=== PATIENT | male | born 1960 | race Caucasian/White ===

== ENCOUNTER → 2018-06-27 09:13 | Outpatient (CLI) | payer OTHER, SELFPAY ==
[2018-06-27 08:38] VITALS: BMI 30.9
--- NOTE | 2018-06-27 09:16 | RAD_ITS ---
STUDY: X-RAY - RIGHT FOOT CLINICAL: Male, 58 years old. Patient broke her foot on June 03. Previous images were not obtained here and are not available for direct comparison. TECHNIQUE: 3 view(s) of the foot. COMPARISON: None. FINDINGS: Normal talus, calcaneus, and tarsal bones. Normal visualized subtalar, talonavicular, calcaneocuboid, tarsal and tarsometatarsal articulations. There is an oblique fracture of the mid second metatarsal shaft with 4 mm lateral displacement, 4 mm superior displacement, and less than 2 mm shortening. No significant angulation is demonstrated. There is faint callus formation surrounding the fracture site, with no demonstrated bridging callus. Normal metatarsophalangeal joint of the great toe. Normal tibial and fibular sesamoid bones. Normal interphalangeal joint of the great toe. Normal phalanges of the great toe. Normal second through fifth metatarsophalangeal joints. Normal interphalangeal joints and phalanges of the lesser toes. There is soft tissue swelling. RAD/Foot min 3 Views IMPRESSION: Mildly displaced second metatarsal shaft fracture, as above. Early callus formation is visualized. Electronically Signed: Woodrow Escalante MD at 8:01 EST , Service support ,
== END ==
PROVIDERS: Family Provider Nurse Practitioner Family; PCP Nurse Practitioner Family; Referring Provider Nurse Practitioner Family; Visit Provider Nurse Practitioner Family
DX: S92.901A Unspecified fracture of right foot, initial encounter for closed fracture (principal); S92.501A Displaced unspecified fracture of right lesser toe(s), initial encounter for closed fracture
CPT/HCPCS: 73630

== ENCOUNTER → 2018-07-06 08:38 | Outpatient (CLI) | payer OTHER, SELFPAY ==
[2018-06-27 08:38] VITALS: BMI 30.9
[2018-07-06 13:03] LABS: Anion Gap 7 (5-15); BUN 19 mg/dL (7-18); BUN/Creat Ratio 17.9 RATIO (10-20); Calcium,Total 8.8 mg/dL (8.5-10.1); Chloride 106 mmol/L (98-107); Creatinine, Serum 1.06 mg/dL (0.70-1.30); EST Glomerular Filtration Rate 77 mL/min (>60); Est Glom Filt Rate - Afr Amer 93 mL/min (>60); Glucose 110 mg/dL (74-106); Potassium 4.4 mmol/L (3.5-5.1); Sodium Level 141 mmol/L (136-145)
== END ==
PROVIDERS: Family Provider Nurse Practitioner Family; PCP Nurse Practitioner Family; Visit Provider Nurse Practitioner Family
DX: I10 Essential (primary) hypertension (principal)
CPT/HCPCS: 36415; 80048

== ENCOUNTER → 2018-08-07 | Outpatient (CLI) | payer OTHER, SELFPAY ==
[2018-08-07 08:37] VITALS: BMI 30.9
--- NOTE | 2018-08-07 09:21 | RAD_ITS ---
STUDY: X-RAY - RIGHT FOOT CLINICAL: Male, 58 years old. Fracture follow-up. TECHNIQUE: 3 view(s) of the foot. COMPARISON: Right foot, June 27, 2018. FINDINGS: Normal talus and tarsal bones. There is minimal spurring at the insertion of the plantar aponeurosis upon otherwise normal calcaneus. Normal visualized subtalar, talonavicular, calcaneocuboid, tarsal and tarsometatarsal articulations. There is a mildly displaced fracture of the midshaft of the second metatarsal with extensive periosteal reaction and callus formation. There is no change in alignment when compared to the prior study. The remainder of the metatarsals are unremarkable. Normal metatarsophalangeal joint of the great toe. Normal tibial and fibular sesamoid bones. Normal interphalangeal joint of the great toe. Normal phalanges of the great toe. Normal second through fifth metatarsophalangeal joints. Normal interphalangeal joints and phalanges of the lesser toes. The soft tissue structures are unremarkable. RAD/Foot min 3 Views IMPRESSION: Healed/healing fracture of the second metatarsal without change in alignment. Electronically Signed: Jeremy Ndiaye DO at 17:03 EDT Tel [phone], Service support ,
== END | disposition home or self-care (01) ==
LOC: MTRAD 09:19
PROVIDERS: Family Provider Internal Medicine; PCP Internal Medicine; Referring Provider Podiatrist; Visit Provider Podiatrist
DX: S92.301D Fracture of unspecified metatarsal bone(s), right foot, subsequent encounter for fracture with routine healing (principal)
CPT/HCPCS: 73630

== ENCOUNTER → 2018-08-17 | Outpatient (CLI) | payer OTHER, SELFPAY ==
[2018-08-07 08:37] VITALS: BMI 30.9
[2018-08-17 12:54] LABS: Absolute Lymphocyte Count 1.41 X10^3/ul (0.83-4.51); Absolute Neutrophil Count 1.5 X10^3/uL (2.0-7.7); Basophil# 0.02 X10^3/uL; Basophil% 0.6 % (0-1); Eosinophil# 0.24 X10^3/uL; Eosinophils% 6.6 % (0-5); Hematocrit 45.2 % (40-54); Hemoglobin 15.3 g/dl (13.0-16.5); Lymphocyte # 1.41 X10^3/ul (4.0); Lymphocyte % 38.8 % (19-41); Mean Corp Hgb Conc 33.8 g/gl (32-36); Mean Corpuscular Hgb 28.7 pg (27.0-32.0); Mean Corpuscular Volume 84.8 fL (80-94); Monocyte# 0.43 X10^3/uL; Monocyte% 11.8 % (0-10); Neutrophil # 1.52 X10^3/uL (2.7-7.7); Neutrophil % 41.9 % (47-70); Platelet Count 192 K/mm3 (150-450); RBC Distribution Width CV 12.8 % (11.6-14.6); RBC Distribution Width SD 39.2 fl (35.1-43.9); Red Blood Count 5.33 M/mm3 (4.6-6.2); White Blood Count 3.6 K/mm3 (4.4-11.0)
[2018-08-17 12:56] LABS: POSITIVE COUNT NO; POSITIVE DIFFERENTIAL NO; POSITIVE MORPHOLOGY NO
[2018-08-17 13:18] LABS: ALB/GLOB Ratio 1.3 RATIO (0.9-2.4); AST(SGOT) 27 U/L (15-37); Alanine Aminotransfer ALT/SGPT 52 U/L (16-61); Albumin, Serum 3.9 g/dL (3.2-5.0); Alkaline Phosphatase 68 U/L (45-117); Anion Gap 8 (5-15); BUN 21 mg/dL (7-18); BUN/Creat Ratio 19.6 RATIO (10-20); Calcium,Total 8.6 mg/dL (8.5-10.1); Chloride 109 mmol/L (98-107); Cholesterol 218 mg/dL (200); Creatinine, Serum 1.07 mg/dL (0.70-1.30); EST Glomerular Filtration Rate 76 mL/min (>60); Est Glom Filt Rate - Afr Amer 92 mL/min (>60); Globulin 2.9 g/dL (2.2-4.2); Glucose 98 mg/dL (74-106); High Density Lipoprotein 53 mg/dL; Potassium 4.2 mmol/L (3.5-5.1); Protein, Total 6.8 g/dL (6.4-8.2); Sodium Level 142 mmol/L (136-145); Triglycerides 141 mg/dL; Very Low Density Lipoprotein 28 mg/dL (5-40)
== END | disposition home or self-care (01) ==
LOC: BIMLAB 09:22
PROVIDERS: Family Provider Internal Medicine; PCP Internal Medicine; Visit Provider Internal Medicine
DX: I10 Essential (primary) hypertension (principal)
CPT/HCPCS: 36415; 80053; 80061; 85025

== ENCOUNTER → 2019-08-07 | Outpatient (CLI) | payer BC, SELFPAY ==
[2019-08-07 08:55] VITALS: BMI 32.4
[2019-08-07 12:49] LABS: Absolute Lymphocyte Count 1.34 X10^3/uL (0.83-4.51); Absolute Neutrophil Count 2.3 X10^3/uL (2.0-7.7); Basophil# 0.03 X10^3/uL; Basophil% 0.7 % (0-1); Eosinophil# 0.39 X10^3/uL; Eosinophils% 8.6 % (0-5); Hemoglobin 15.8 g/dL (13.0-16.5); Lymphocyte # 1.34 X10^3/ul (4.0); Lymphocyte % 29.5 % (19-41); Mean Corp Hgb Conc 33.6 g/dL (32-36); Mean Corpuscular Hgb 29.6 pg (27.0-32.0); Mean Corpuscular Volume 88.2 fL (80-94); Mean Platelet Vol. 10.5 fl (6.2-12.0); Monocyte# 0.44 X10^3/uL; Monocyte% 9.7 % (0-10); NRBC Flagged by Analyzer 0 % (0-5); Neutrophil # 2.33 X10^3/uL (2.7-7.7); Neutrophil % 51.1 % (47-70); Platelet Count 211 K/mm3 (150-450); RBC Distribution Width CV 12.7 % (11.6-14.6); RBC Distribution Width SD 40.6 fl (35.1-43.9); Red Blood Count 5.33 M/mm3 (4.6-6.2); White Blood Count 4.6 K/mm3 (4.4-11.0)
[2019-08-07 13:14] LABS: ALB/GLOB Ratio 1.3 RATIO (0.9-2.4); AST(SGOT) 30 U/L (15-37); Alanine Aminotransfer ALT/SGPT 67 U/L (16-61); Albumin, Serum 4.2 g/dL (3.2-5.0); Alkaline Phosphatase 64 U/L (45-117); Anion Gap 4 (5-15); BUN 20 mg/dL (7-18); BUN/Creat Ratio 21.4 RATIO (10-20); Calcium,Total 8.8 mg/dL (8.5-10.1); Chloride 104 mmol/L (98-107); Cholesterol 229 mg/dL (200); Creatinine, Serum 0.93 mg/dL (0.70-1.30); EST Glomerular Filtration Rate 89 mL/min (>60); Est Glom Filt Rate - Afr Amer 107 mL/min (>60); Globulin 3.2 g/dL (2.2-4.2); Glucose 84 mg/dL (74-106); High Density Lipoprotein 59 mg/dL; PSA,Total - Annual Screen 2.75 ng/mL (0.00-4.00); Potassium 3.9 mmol/L (3.5-5.1); Protein, Total 7.4 g/dL (6.4-8.2); Sodium Level 140 mmol/L (136-145); Thyroid Stim Hormone (TSH) 1.46 uIU/mL (0.358-3.74); Triglycerides 221 mg/dL; Very Low Density Lipoprotein 44 mg/dL (5-40)
[2019-08-07 13:55] LABS: Bacteria 0 SEEN /hpf (None Seen); Mucous, Urine 0 SEEN /hpf (<or=2+); Red Blood Cells-Urine 0 SEEN /hpf (0-5); White Blood Cells 0 SEEN /hpf (0-5)
[2019-08-07 14:00] LABS: Color, Urine Yellow (Yellow); Glucose, Dipstick Normal (Normal); Ketone-Dipstick Negative (Negative); Leukocyte Esterase-Dipstick Negative /ul (Negative); Nitrite-Dipstick Negative (Negative); Occult Blood-Urine Negative /ul (Negative); Protein-Dipstick Negative (Negative); Urine Bilirubin Dipstick Negative (Negative); Urine Clarity Clear (Clear); Urine Urobilinogen Normal (Normal); Urine pH 6.5 (5.0 - 8.0)
[2019-08-07 14:06] LABS: Squamous Epithelial Cells - UA 0-5 SEEN /hpf (0-5)
== END | disposition home or self-care (01) ==
LOC: LAB 12:20 → LABSPEC 12:25
PROVIDERS: Referring Provider Nurse Practitioner Family; Visit Provider Nurse Practitioner Family
DX: Z00.00 Encounter for general adult medical examination without abnormal findings (principal); I10 Essential (primary) hypertension; E66.9 Obesity, unspecified
CPT/HCPCS: 80053; 80061; 81001; 84153; 84443; 85025; G0103

== ENCOUNTER → 2020-02-12 | Outpatient (CLI) | payer BC, SELFPAY ==
[2020-02-12 08:48] VITALS: BMI 33.2
[2020-02-12 13:43] LABS: Cholesterol 234 mg/dL (200); High Density Lipoprotein 62 mg/dL; Triglycerides 127 mg/dL; Very Low Density Lipoprotein 25 mg/dL (5-40)
== END | disposition home or self-care (01) ==
LOC: BIMLAB 09:22
PROVIDERS: PCP Internal Medicine; Referring Provider Nurse Practitioner Family; Visit Provider Nurse Practitioner Family
DX: E78.5 Hyperlipidemia, unspecified (principal)
CPT/HCPCS: 36415; 80061

== ENCOUNTER → 2020-03-10 09:40 | Outpatient (CLI) | payer BC, SELFPAY ==
[2020-02-12 08:48] VITALS: BMI 33.2
== END ==
PROVIDERS: PCP Internal Medicine; Referring Provider Internal Medicine; Visit Provider Internal Medicine
DX: Z03.818 Encounter for observation for suspected exposure to other biological agents ruled out (principal); J02.9 Acute pharyngitis, unspecified
CPT/HCPCS: 87635; C9803; U0003

== ENCOUNTER → 2020-08-12 08:53 | Outpatient (CLI) | payer BC, SELFPAY ==
[2020-08-12 08:06] VITALS: BMI 32.1
[2020-08-12 08:55] LABS: Bacteria 0 SEEN /hpf (None Seen); Mucous, Urine 0 SEEN /hpf (<or=2+); Red Blood Cells-Urine 0 SEEN /hpf (0-5); White Blood Cells 0 SEEN /hpf (0-5)
[2020-08-12 12:12] LABS: Absolute Lymphocyte Count 1.38 X10^3/uL (0.83-4.51); Absolute Neutrophil Count 2.3 X10^3/uL (2.0-7.7); Basophil# 0.03 X10^3/uL; Basophil% 0.7 % (0-1); Eosinophil# 0.33 X10^3/uL; Eosinophils% 7.4 % (0-5); Hemoglobin 15.8 g/dL (13.0-16.5); Lymphocyte # 1.38 X10^3/ul (0.83-4.51); Mean Corp Hgb Conc 32.9 g/dL (32-36); Mean Corpuscular Hgb 28.9 pg (27.0-32.0); Mean Corpuscular Volume 87.9 fL (80-94); Mean Platelet Vol. 10.1 fl (6.2-12.0); Monocyte# 0.43 X10^3/uL; Monocyte% 9.7 % (0-10); NRBC Flagged by Analyzer 0 % (0-5); Neutrophil # 2.27 X10^3/uL (2.7-7.7); Platelet Count 213 K/mm3 (150-450); RBC Distribution Width CV 12.5 % (11.6-14.6); RBC Distribution Width SD 40.2 fl (35.1-43.9); Red Blood Count 5.46 M/mm3 (4.6-6.2); White Blood Count 4.5 K/mm3 (4.4-11.0)
[2020-08-12 12:14] LABS: Color, Urine Yellow (Yellow); Glucose, Dipstick Normal (Normal); Ketone-Dipstick 5 mg/dl (Negative); Leukocyte Esterase-Dipstick Negative /ul (Negative); Nitrite-Dipstick Negative (Negative); Occult Blood-Urine Negative /ul (Negative); Protein-Dipstick Negative (Negative); Urine Bilirubin Dipstick Negative (Negative); Urine Clarity Clear (Clear); Urine Urobilinogen Normal (Normal)
[2020-08-12 12:32] LABS: Squamous Epithelial Cells - UA 0-5 SEEN /hpf (0-5)
[2020-08-12 12:34] LABS: ALB/GLOB Ratio 1.4 RATIO (0.9-2.4); AST(SGOT) 34 U/L (15-37); Alanine Aminotransfer ALT/SGPT 54 U/L (16-61); Albumin, Serum 4.2 g/dL (3.2-5.0); Alkaline Phosphatase 62 U/L (45-117); Anion Gap 4 (5-15); BUN 22 mg/dL (7-18); BUN/Creat Ratio 22.6 RATIO (10-20); Calcium,Total 9.4 mg/dL (8.5-10.1); Chloride 104 mmol/L (98-107); Cholesterol 218 mg/dL (200); Creatinine, Serum 0.98 mg/dL (0.70-1.30); EST Glomerular Filtration Rate 84 mL/min (>60); Est Glom Filt Rate - Afr Amer 101 mL/min (>60); Globulin 3.1 g/dL (2.2-4.2); Glucose 101 mg/dL (74-106); High Density Lipoprotein 59 mg/dL; Protein, Total 7.3 g/dL (6.4-8.2); Sodium Level 138 mmol/L (136-145); Thyroid Stim Hormone (TSH) 1.48 uIU/mL (0.358-3.74); Triglycerides 154 mg/dL; Very Low Density Lipoprotein 31 mg/dL (5-40)
== END ==
PROVIDERS: PCP Internal Medicine; Referring Provider Physician Assistant; Visit Provider Physician Assistant
DX: I10 Essential (primary) hypertension (principal); E66.9 Obesity, unspecified; Z12.5 Encounter for screening for malignant neoplasm of prostate
CPT/HCPCS: 36415; 80053; 80061; 81001; 84153; 84443; 85025; G0103

== ENCOUNTER 2021-05-04 11:14 | Outpatient (CLI) | payer BC, SELFPAY ==
[2021-05-04 12:44] LABS: Anion Gap 4 (5-15); BUN 22 mg/dL (7-18); BUN/Creat Ratio 23.3 RATIO (10-20); Calcium,Total 9.5 mg/dL (8.5-10.1); Chloride 104 mmol/L (98-107); Creatinine, Serum 0.94 mg/dL (0.70-1.30); EST Glomerular Filtration Rate 87 mL/min (>60); Est Glom Filt Rate - Afr Amer 105 mL/min (>60); Glucose 98 mg/dL (74-106); Potassium 3.8 mmol/L (3.5-5.1); Sodium Level 139 mmol/L (136-145)
== END 2021-05-04 23:59 | disposition short-term general hospital (02) ==
LOC: BIMLAB 11:15
PROVIDERS: Nurse Practitioner Family; PCP Internal Medicine; Visit Provider Internal Medicine
DX: I10 Essential (primary) hypertension (principal)
CPT/HCPCS: 36415; 80048

== ENCOUNTER 2021-06-30 07:40 | Outpatient (CLI) | payer BC, SELFPAY ==
--- NOTE | 2021-06-30 07:47 | CT_ITS ---
STUDY: CT RIGHT LOWER EXTREMITY WITHOUT CONTRAST REASON FOR EXAM: Right knee osteoarthritis, surgical planning. TECHNIQUE: Transaxial CT imaging of the lower extremity was performed. Coronal and sagittal images were reformatted. Individualized dose optimization techniques were used for this CT. COMPARISON: None. FINDINGS: Knee: There are marginal osteophytes, subchondral eburnation and severe joint space narrowing of the medial femorotibial compartment (coronal reconstruction 29). There are marginal osteophytes and subchondral eburnation and joint space narrowing of the mesial aspect of the lateral femorotibial compartment (coronal reconstruction 34). There are marginal osteophytes and joint space narrowing of the patellofemoral compartment (axial image 221). There is a small joint effusion. There is a small intra-articular body in a small popliteal cyst (sagittal reconstruction 42). There is chondrocalcinosis in the menisci (coronal reconstruction 27). Hip: There is mild chondrocalcinosis in the labrum (coronal reconstruction 59). There is joint space of the right hip is well-maintained. Ankle: Normal tibiotalar and posterior subtalar articulations. There is a small cyst in the medial body of the talus (coronal reconstruction 17). There is a bone island in the distal tibia. CT/Extremity Lower without Contra IMPRESSION: Right knee osteoarthritis. Electronically Signed: Norberto Mcqueen MD at 14:45 EST ,
--- NOTE | 2021-06-30 08:16 | EKG12_ITS ---
Test Reason : PREOP Blood Pressure : / mmHG Vent. Rate : 060 BPM Atrial Rate : 060 BPM P-R Int : 166 ms QRS Dur : 172 ms QT Int : 462 ms P-R-T Axes : 037 -55 029 degrees QTc Int : 462 ms Normal sinus rhythm Right bundle branch block Left anterior fascicular block Bifascicular block Abnormal ECG Confirmed by DANYELL LIRIANO, ANDRES ([id number]), video tape editor SHANNON RITCHIE ([id number]) on 06/30/2021 1:35:11 PM Referred By: Seamus Crews Confirmed By:ANDRES CHILD MD
== END 2021-06-30 23:59 | disposition home or self-care (01) ==
PROVIDERS: PCP Internal Medicine; Referring Provider Orthopaedic Surgery; Visit Provider Orthopaedic Surgery
DX: Z01.818 Encounter for other preprocedural examination (principal); Z01.810 Encounter for preprocedural cardiovascular examination; M17.11 Unilateral primary osteoarthritis, right knee; Z20.822 Contact with and (suspected) exposure to COVID-19
CPT/HCPCS: 73700; 87426; 93005; C9803

== ENCOUNTER → 2021-08-24 | Outpatient (CLI) | payer OTHER, SELFPAY ==
--- NOTE | 2021-08-24 06:21 | ECHOD_ITS ---
Reason For Study: ABN EKG Procedure This was a 2D Doppler, Color Flow transthoracic echocardiogram. Exam performed in department. Left Ventricle Normal LV size. Left ventricular systolic function is normal. The estimated ejection fraction is 60 %. Normal diastology for age. No regional wall motion abnormalities noted. Right Ventricle Normal RV size. Normal systolic function. Atria Normal left atrium. Normal right atrium. Mitral Valve Normal mitral valve. Tricuspid Valve Normal tricuspid valve. Mild tricuspid valve insufficiency. Aortic Valve Normal aortic valve. Trisinus/trileaflet aortic valve. Pulmonic Valve Normal pulmonic valve. Great Vessels Normal aortic root. The pulmonary artery is normal size. Normal inferior vena cava. Pericardium/Pleural No pericardial effusion. MMode/2D Measurements & Calculations LVIDd: 4.9 cm IVSd: 1.4 cm Ao root diam: 3.7 cm LVIDs: 2.9 cm LVPWd: 1.4 cm RVDd: 4.1 cm FS: 41.4 % LAV(MOD-bp): 75.7 ml LVAd ap4: 38.7 cm2 SV(MOD-sp4): 76.5 ml LAV(MOD-bp) Indexed: 33.4 ml/m2 LVLd ap4: 9.0 cm LAV(MOD-sp2): 79.1 ml EDV(MOD-sp4): 138.4 ml LAV(MOD-sp4): 67.2 ml EDV(sp4-el): 142.4 ml LVAs ap4: 21.4 cm2 LVLs ap4: 7.2 cm ESV(MOD-sp4): 61.9 ml ESV(sp4-el): 53.9 ml EF(MOD-sp4): 55.3 % EF(sp4-el): 62.2 % SV(sp4-el): 88.5 ml LA A4 area: 22.7 cm2 LA dimension(2D): 4.1 cm RA A4 area: 19.7 cm2 Doppler Measurements & Calculations MV E max reji: 57.0 cm/sec Lat Peak E' Reji: 6.1 cm/sec Med Peak E' Reji: 6.3 cm/sec MV A max reji: 48.6 cm/sec E/E' lat: 9.4 E/E' med: 9.1 MV E/A: 1.2 LV V1 max: 109.3 cm/sec TR max reji: 222.4 cm/sec LV V1 max P.8 mmHg TR max P.8 mmHg ECHO/Echo Complete Interpretation Summary Normal LV size. Left ventricular systolic function is normal. The estimated ejection fraction is 60 %. Mild tricuspid valve insufficiency. Ordering Physician: Aldo Branch Referring Physician: Deangelo Pandya Performed By: Crystal Reza RCS
--- NOTE | 2021-08-24 18:49 | STRESSREP ---
Stress Test Report Pharmacologic myocardial perfusion stress test. Preoperative evaluation for abnormal EKG. Stress protocol: Resting KG demonstrates normal sinus rhythm with a rate of 58 bpm and a right bundle branch block. Resting blood pressure is 124/90 mmHg. 0.4 mg of regadenoson was infused per usual protocol followed by rapid intravenous saline flush injection continuous EKG monitoring was performed. The maximum heart rate attained was 86 bpm which was 53% of max impact at heart rate the maximum workload was 1 metabolic equivalent. At rest there were no ST or T wave changes noted to suggest abnormal flow reserve and at peak infusion nonspecific ST changes were noted with did not meet the criteria for ischemia. No clinical angina was noted. Resting bundle branch block was noted. The peak blood pressure was 130/82 mmHg. Myocardial perfusion protocol. 14.8 mCi of technetium 99m sestamibi was injected at rest. 0.4 mg of regadenoson was infused per usual protocol. At peak infusion 44.7 mCi of technetium 99m sestamibi was injected stress images were obtained stress and rest images were reconstructed in comparing the short axis vertical long and horizontal long axis. Gated images were also obtained per Perfusion SPECT analysis: Review of the stress images demonstrate normal uptake of tracer noted in all areas of the myocardium. The resting images similarly demonstrate normal uptake of tracer noted in all areas of the myocardium. No areas of reversibility are noted suggest ischemia and no previous infarct is noted. Gated SPECT analysis: The gated ejection fraction is 65%. Conclusion: Normal pharmacologic myocardial perfusion stress test. Preserved ejection fraction.
== END | disposition home or self-care (01) ==
LOC: CVS 06:17
PROVIDERS: PCP Internal Medicine; Referring Provider Internal Medicine Cardiovascular Disease; Visit Provider Internal Medicine Cardiovascular Disease
DX: Z01.810 Encounter for preprocedural cardiovascular examination (principal); I45.2 Bifascicular block; I10 Essential (primary) hypertension; E66.9 Obesity, unspecified; M17.11 Unilateral primary osteoarthritis, right knee; R94.31 Abnormal electrocardiogram [ECG] [EKG]
CPT/HCPCS: 78452; 93017; 93306; A9500; A4216; J2785

== ENCOUNTER → 2021-09-06 | Outpatient (CLI) | payer OTHER, SELFPAY ==
[2021-09-06 16:37] LABS: Absolute Neutrophil Count 3.5 X10^3/uL (2.0-7.7); Basophil# 0.03 X10^3/uL; Basophil% 0.5 % (0-1); Eosinophil# 0.34 X10^3/uL; Eosinophils% 5.8 % (0-5); Hematocrit 40.9 % (40-54); Hemoglobin 14.1 g/dL (13.0-16.5); Lymphocyte % 23.9 % (19-41); Mean Corp Hgb Conc 34.5 g/dL (32-36); Mean Corpuscular Hgb 29.4 pg (27.0-32.0); Mean Corpuscular Volume 85.4 fL (80-94); Mean Platelet Vol. 10.4 fl (6.2-12.0); Monocyte# 0.55 X10^3/uL; Monocyte% 9.4 % (0-10); NRBC Flagged by Analyzer 0 % (0-5); Neutrophil % 59.9 % (47-70); Platelet Count 202 K/mm3 (150-450); RBC Distribution Width CV 12.2 % (11.6-14.6); RBC Distribution Width SD 37.7 fl (35.1-43.9); Red Blood Count 4.79 M/mm3 (4.6-6.2); White Blood Count 5.9 K/mm3 (4.4-11.0)
[2021-09-06 17:12] LABS: ALB/GLOB Ratio 1.3 RATIO (0.9-2.4); AST(SGOT) 26 U/L (15-37); Alanine Aminotransfer ALT/SGPT 44 U/L (16-61); Alkaline Phosphatase 57 U/L (45-117); Anion Gap 4 (5-15); BUN 21 mg/dL (7-18); BUN/Creat Ratio 22.8 RATIO (10-20); Calcium,Total 9.2 mg/dL (8.5-10.1); Chloride 105 mmol/L (98-107); Cholesterol 212 mg/dL (200); Creatinine, Serum 0.92 mg/dL (0.70-1.30); EST Glomerular Filtration Rate 89 mL/min (>60); Est Glom Filt Rate - Afr Amer 108 mL/min (>60); Glucose 97 mg/dL (74-106); High Density Lipoprotein 63 mg/dL; Potassium 3.5 mmol/L (3.5-5.1); Sodium Level 139 mmol/L (136-145); Triglycerides 165 mg/dL; Very Low Density Lipoprotein 33 mg/dL (5-40)
== END | disposition home or self-care (01) ==
LOC: BIMLAB 15:45
PROVIDERS: PCP Internal Medicine; Referring Provider Internal Medicine; Visit Provider Internal Medicine
DX: I10 Essential (primary) hypertension (principal)
CPT/HCPCS: 36415; 80053; 80061; 85025

== ENCOUNTER → 2023-04-25 | Outpatient (CLI) | payer OTHER, SELFPAY ==
--- NOTE | 2023-04-25 07:34 | EKG12_ITS ---
Test Reason : PREOP Blood Pressure : / mmHG Vent. Rate : 061 BPM Atrial Rate : 061 BPM P-R Int : 000 ms QRS Dur : 164 ms QT Int : 448 ms P-R-T Axes : 000 -60 020 degrees QTc Int : 450 ms Normal sinus rhythm Right bundle branch block Left anterior fascicular block Bifascicular block Septal infarct , age undetermined Abnormal ECG Confirmed by DANYELL LIRIANO, ANDRES ([id number]), photo editor SHANNON RITCHIE ([id number]) on 04/26/2023 6:21:26 AM Referred By: Seamus Crews Confirmed By:ANDRES CHILD MD
--- NOTE | 2023-04-25 07:35 | CT_ITS ---
CT RIGHT LOWER EXTREMITY WITH 3-D IMAGING CLINICAL INDICATION: OSTEOARTHRITIS RIGHT KNEE TECHNIQUE: Axial CT images of the right lower extremity (including right hip, right knee, and right ankle was performed without IV contrast material. Coronal and sagittal reformats were provided. RADIATION DOSAGE (If Supplied By Facility): CTDIvol = ( 19.73 ) mGy, DLP = ( 1196.55 ) mGycm COMPARISON: Right knee CT dated 06/30/2021. FINDINGS: Knee: There are unchanged marginal osteophytes, subchondral eburnation as well as severe joint space narrowing of the medial femorotibial compartment. There are unchanged marginal osteophytes and subchondral eburnation and joint space narrowing of the mesial aspect of the lateral femorotibial compartment. There are unchanged marginal osteophytes and joint space narrowing of the patellofemoral compartment. There is a persistent small joint effusion. There is a stable 8 mm calcified intra-articular body in a small popliteal cyst. There is persistent chondrocalcinosis in the menisci. Hip: There is persistent mild chondrocalcinosis in the acetabular labrum. There is joint space of the right hip is well-maintained. Ankle: Normal tibiotalar and posterior subtalar articulations. There is a persistent 8 mm cyst in the medial body of the talus. There is an unchanged 6 mm benign bone island in the distal tibia. CT/Extremity Lower without Contra IMPRESSION: Unchanged tricompartment degenerative arthrosis of the right knee, most severe in the medial femorotibial compartment. Electronically Signed: Handy Flores MD at 8:38 EST ,
--- OUTSIDE RECORDS SUMMARY | 2023-04-25 07:58 | XMS RPT_ITS | CCD ---
Author Name Unknown Address [address] [place] [address] Organization [facility] Care Team Providers Care Room Service Food Service Attendant Name Role Phone KACEY GOMEZ Attending Unavailable RAMON ROWE Primary Care Unavailable Results Test Name Value Interpretation Reference Range Facil ity Encounters Encounter Date Encounter Type Care Provider Facility Start: 06-03-2018 End: 06-03-2018 Emergency department patient visit KACEY GOMEZ Facil ity:B Payers Date Payer Category Payer Unknown [id number] 1960 Unknown [id number] Summary Purpose Family History No Family History Records Found Advance Directives No Advanced Directives Records Found Additional Source Comments (unrecognized sect ion and content) No Status Records Found INFORMATION SOURCE (unrecogn ized section and content) FOR RECORDS PERTAINING TO PATIENTS WHO ARE OR HAVE BEEN ENROLLED IN A CHEMICAL DEPENDENCY/SUBSTANCEABUSE PROGRAM, SOME INFORMATION MAY BE OMITTED. This clinical summary was aggregated from multiple sources. Caution should be exercised in using it in the provision of clinical care. This summary normalizes information from multiple sources, and as a consequence, information in this document may materially change the coding, format and clinical context of patient data. In addition, data may be omitted in some cases. CLINICAL DECISIONS SHOULD BE BASED ON THE PRIMARY CLINICAL RECORDS. [facility]. provides no warranty or guarantee of the accuracy or completeness of information in this document.
[2023-04-25 08:37] LABS: Absolute Lymphocyte Count 1.31 X10^3/uL (0.83-4.51); Absolute Neutrophil Count 2.6 X10^3/uL (2.0-7.7); Basophil# 0.02 X10^3/uL; Basophil% 0.4 % (0-1); Hematocrit 43.4 % (40-54); Hemoglobin 15.1 g/dL (13.0-16.5); Lymphocyte # 1.31 X10^3/ul (0.83-4.51); Lymphocyte % 26.1 % (19-41); Mean Corp Hgb Conc 34.8 g/dL (32-36); Mean Corpuscular Hgb 29.8 pg (27.0-32.0); Mean Corpuscular Volume 85.8 fL (80-94); Mean Platelet Vol. 9.5 fl (6.2-12.0); Monocyte# 0.65 X10^3/uL; NRBC Flagged by Analyzer 0 % (0-5); Neutrophil % 51.9 % (47-70); Platelet Count 232 K/mm3 (150-450); RBC Distribution Width CV 12.4 % (11.6-14.6); RBC Distribution Width SD 38.6 fl (35.1-43.9); Red Blood Count 5.06 M/mm3 (4.6-6.2)
[2023-04-25 09:33] LABS: ALB/GLOB Ratio 1.2 RATIO (0.9-2.4); AST(SGOT) 24 U/L (15-37); Alanine Aminotransfer ALT/SGPT 32 U/L (16-61); Alkaline Phosphatase 69 U/L (45-117); Anion Gap 4 (5-15); BUN 22 mg/dL (7-18); BUN/Creat Ratio 25.4 RATIO (10-20); Calcium,Total 9.4 mg/dL (8.5-10.1); Chloride 108 mmol/L (98-107); Cholesterol 204 mg/dL (200); Creatinine, Serum 0.87 mg/dL (0.70-1.30); EST Glomerular Filtration Rate 95 mL/min (>60); Est Glom Filt Rate - Afr Amer 115 mL/min (>60); Globulin 3.4 g/dL (2.2-4.2); Glucose 100 mg/dL (74-106); High Density Lipoprotein 69 mg/dL; Protein, Total 7.4 g/dL (6.4-8.2); Sodium Level 139 mmol/L (136-145); Triglycerides 95 mg/dL; Very Low Density Lipoprotein 19 mg/dL (5-40)
[2023-04-25 10:10] LABS: Hemoglobin A1c 5.1 % (3.8-5.6)
== END | disposition home or self-care (01) ==
LOC: CT 07:32
PROVIDERS: PCP Internal Medicine; Referring Provider Orthopaedic Surgery; Visit Provider Orthopaedic Surgery
DX: Z01.818 Encounter for other preprocedural examination (principal); Z01.810 Encounter for preprocedural cardiovascular examination; M17.11 Unilateral primary osteoarthritis, right knee; I10 Essential (primary) hypertension
CPT/HCPCS: 36415; 73700; 80053; 80061; 83036; 85025; 93005

== ENCOUNTER → 2023-05-10 | Outpatient (CLI) | payer OTHER, SELFPAY ==
--- NOTE | 2023-05-10 | BON_PTH ---
PATHOLOGY RESULTS PATIENT: CADENCE [facility]UI [facility] U#:[id number] AGE/SX: 63/M ROOM: RE05/10/[address]: Dr. Seamus Crews DO : 1960 BED: DIS: 05/10/2023 SPEC #: [id number] RECD: 05/11/23 08:11 STATUS: RIKA JORI #: [id number] YAMILE: 05/10/23 00:[address]: Seamus Crews DEPT: SURGICAL PATHOLOGY RECD BY: Amber Jurado ENTERED: 05/11/23 08:11 SP TYPE: Bone OTHR DR: Dr. Ravi Solorzano MD [facility] Tissues: Right knee Procedures: Decalcification bone/plaque Surgery Specimen Level IV HEADER OPERATION: Right robotic assisted total knee arthroplasty PRE-OP DIAGNOSIS: Grade 4 osteoarthritis right knee TISSUE SUBMITTED: Bone and soft tissue right knee MICROSCOPIC DIAGNOSIS Bone and tissue of right knee, total knee resection: Severe degenerative joint disease. Polarizable crystals consistent with pseudogout. AM:ken 05/16/2023 MICROSCOPIC DESCRIPTION Slides are reviewed. GROSS DESCRIPTION Received is one container designated bone and soft tissue right knee. The specimen consists of multiple fragments of jones-yellow bone measuring in aggregate 19.0 x 13.0 x 1.7 cm. Also in the specimen container are multiple fragments of yellow-white soft tissue measuring in aggregate 14.0 x 10.0 x 2.2 cm. A number of bony fragments contain articular surfaces consistent with tibial plateau and femoral condyle and displaying prominent osteophyte formation, eburnation and bone erosion. Cyber Threat Analyst sections are submitted in two cassettes as follows: 1 - soft tissue, 2 - bone after decalcification. / SJ:ken 05/11/2023 TC:5 [facility]: [id number], [id number]
--- OUTSIDE RECORDS SUMMARY | 2023-05-10 15:37 | XMS RPT_ITS | CCD ---
Author Name Unknown Address [address] [place] [address] Organization [facility] Care Team Providers Care 4 H Youth Development Specialist Name Role Phone KACEY GOMEZ Attending Unavailable RAMON ROWE Primary Care Unavailable Results Test Name Value Interpretation Reference Range Facil ity Encounters Encounter Date Encounter Type Care Provider Facility Start: 06-03-2018 End: 06-03-2018 Emergency department patient visit KACEY GOMEZ Facil ity:B Payers Date Payer Category Payer Unknown [id number] 1960 Unknown [id number] Summary Purpose Family History No Family History [...] BE BASED ON THE PRIMARY CLINICAL RECORDS. [facility] [facility]. provides no warranty or guarantee of the accuracy or completeness of information in this document.
== END | disposition home or self-care (01) ==
PROVIDERS: PCP Internal Medicine; Referring Provider Orthopaedic Surgery; Visit Provider Orthopaedic Surgery
DX: M17.11 Unilateral primary osteoarthritis, right knee (principal)
CPT/HCPCS: 88305; 88311

== ENCOUNTER → 2024-03-01 | Outpatient (CLI) | payer OTHER, SELFPAY ==
[2024-03-01 07:43] LABS: Absolute Lymphocyte Count 1.14 X10^3/uL (0.83-4.51); Absolute Neutrophil Count 2.6 X10^3/uL (2.0-7.7); Basophil# 0.02 X10^3/uL; Basophil% 0.4 % (0-1); Eosinophil# 0.26 X10^3/uL; Eosinophils% 5.8 % (0-5); Hematocrit 44.2 % (40-54); Hemoglobin 15.1 g/dL (13.0-16.5); Lymphocyte # 1.14 X10^3/ul (0.83-4.51); Lymphocyte % 25.6 % (19-41); Mean Corp Hgb Conc 34.2 g/dL (32-36); Mean Corpuscular Hgb 29.8 pg (27.0-32.0); Mean Corpuscular Volume 87.4 fL (80-94); Mean Platelet Vol. 9.8 fl (6.2-12.0); Monocyte# 0.39 X10^3/uL; Monocyte% 8.7 % (0-10); NRBC Flagged by Analyzer 0 % (0-5); Neutrophil # 2.62 X10^3/uL (2.7-7.7); Neutrophil % 58.8 % (47-70); Platelet Count 220 K/mm3 (150-450); RBC Distribution Width CV 12.7 % (11.6-14.6); RBC Distribution Width SD 40.2 fl (35.1-43.9); Red Blood Count 5.06 M/mm3 (4.6-6.2); White Blood Count 4.5 K/mm3 (4.4-11.0)
[2024-03-01 08:49] LABS: ALB/GLOB Ratio 1.3 RATIO (0.9-2.4); AST(SGOT) 18 U/L (15-37); Alanine Aminotransfer ALT/SGPT 27 U/L (16-61); Albumin, Serum 3.9 g/dL (3.2-5.0); Alkaline Phosphatase 58 U/L (45-117); Anion Gap 3 (5-15); BUN 18 mg/dL (7-18); BUN/Creat Ratio 22.9 RATIO (10-20); Calcium,Total 8.9 mg/dL (8.5-10.1); Chloride 109 mmol/L (98-107); Cholesterol 201 mg/dL (200); Creatinine, Serum 0.78 mg/dL (0.70-1.30); EST Glomerular Filtration Rate 106 mL/min (>60); Est Glom Filt Rate - Afr Amer 129 mL/min (>60); Globulin 2.9 g/dL (2.2-4.2); Glucose 106 mg/dL (74-106); High Density Lipoprotein 93 mg/dL; PSA,Total - Annual Screen 3.43 ng/mL (0.00-4.00); Potassium 3.9 mmol/L (3.5-5.1); Protein, Total 6.8 g/dL (6.4-8.2); Sodium Level 140 mmol/L (136-145); Triglycerides 90 mg/dL; Very Low Density Lipoprotein 18 mg/dL (5-40)
[2024-03-01 15:13] LABS: Magnesium 2.2 mg/dL (1.6-2.6)
== END | disposition home or self-care (01) ==
LOC: PSN 06:48
PROVIDERS: Physician Assistant; PCP Internal Medicine; Referring Provider Student in an Organized Health Care Education/Training Program; Visit Provider Student in an Organized Health Care Education/Training Program
DX: Z01.818 Encounter for other preprocedural examination (principal); M19.012 Primary osteoarthritis, left shoulder; Z01.810 Encounter for preprocedural cardiovascular examination; S46.012D Strain of muscle(s) and tendon(s) of the rotator cuff of left shoulder, subsequent encounter; M24.012 Loose body in left shoulder
CPT/HCPCS: 36415; 73200; 80053; 80061; 83735; 84153; 85025; 93005; G0103

== ENCOUNTER 2024-03-25 05:26 | Day surgery (SDC) | payer OTHER, SELFPAY ==
[2024-03-25] VITALS (14 sets, daily range): BP systolic 100–134; BP diastolic 74–95; PULSE 59–97; RESP 15–16; TEMP 35.9–37; O2SAT 92–99; BMI 29.6
[2024-03-25] MEDS: Magnesium 1 GM over 15 mins IV (06:32)
[2024-03-25] MEDS: Acetaminophen 500 MG Tablet 1000 MG PO (06:37)
[2024-03-25] MEDS: Lactated Ringers 1,000 ML 999 ML IV (06:37)
[2024-03-25] MEDS: Gabapentin 600 MG Tablet PO (06:37)
[2024-03-25] MEDS: Celecoxib 200 MG Capsule 400 MG PO (06:37)
[2024-03-25] MEDS: Vancomycin HCl 1,500 MG in 0.9% Normal Saline (500mL Bag) 500 ML 250 MG IV (06:38)
--- NOTE | 2024-03-25 07:13 | PCM.PRE.AN2 ---
ASA Classification* ASA Classification ASA Classification: 2 Assessment & Plan Anesthesia* Anesthesia Assessment Anesthesia Assessment: Discussed sedation and/or anesthesia options, risks, benefits, and alternatives with patient/parents/legal guardian/POA. Questions invited. The patient/parents/legal guardian/POA seems to understand and agrees to proceed with anesthesia plan. Reviewed the physical assessment, medical history, allergy history and patient home medications list prior to surgery/procedure/anesthetic and documented any changes. Performed airway and anesthesia risk assessments. Anesthesia Type Anesthesia Type: General and Block Anesthesia Focused Assessment* Temperature: 98.6 F Pulse Rate: 69 Blood Pressure: 134/93 Respiratory Rate: 16 Pulse Ox: 98 Airway Assessment Mouth opens: >3 cm Mallampati Score: II Focused Labs Anesthesia Preop lab: CBC WBC 4.5 K/mm3 (4.4-11.0) 03/01/24 07:16 RBC 5.06 M/mm3 (4.6-6.2) 03/01/24 07:16 Hgb 15.1 g/dL (13.0-16.5) 03/01/24 07:16 Hct 44.2 % (40-54) 03/01/24 07:16 Plt Count 220 K/mm3 (150-450) 03/01/24 07:16 CHEMISTRY Potassium 3.9 mmol/L (3.5-5.1) 03/01/24 07:16 Sodium 140 mmol/L (136-145) 03/01/24 07:16 Magnesium 2.2 mg/dL (1.6-2.6) 03/01/24 07:16 BUN 18 mg/dL (7-18) 03/01/24 07:16 Creatinine 0.78 mg/dL (0.70-1.30) 03/01/24 07:16 Glucose 106 mg/dL (74-106) 03/01/24 07:16 TSH 1.48 uIU/mL (0.358-3.74) 08/12/20 08:54 COAG Pre-Assessment Diagnosis/Proposed Procedure Planned Operative Procedure(s): LEFT REVERSE TOTAL SHOULDER ARTHROPLASTY Anesthesia History Anesthesia History - delinquency prevention social worker: Anesthesia History - delinquency prevention social worker Hx Hospitalization No 03/01/24 14:38 Any Problems With Anesthesia No 03/01/24 14:38 Cholinesterase deficiency No 03/01/24 14:38 You/Your Family Experience No 03/01/24 14:38 fever (hyperthermia) with Relationship Recent Exposure to Contagious No 03/25/24 06:04 Disease Does patient have nerve No 03/01/24 14:38 stimulator Patient instructed to have device shut off --Does patient have Pacemaker No 03/25/24 06:04 or ICD? When Was Last Pacemaker Check QUESTION #4 FULL TEXT: You/Your Family Experience fever (hyperthermia) with Anesthesia Last Oral Intake Last Oral intake: Last Oral Intake NPO since 00:00 03/25/24 06:04 Meds taken in AM with sips of No 03/25/24 06:04 water? Meds patient instructed to take am of surgery PONV PONV - delinquency prevention social worker: PONV - delinquency prevention social worker Female No 03/01/24 14:38 HX of Motion Sickness No 03/01/24 14:38 HX of N/V After Surgery No 03/01/24 14:38 Non-Smoker Yes 03/01/24 14:38 Duration of Surgery greater Yes 03/01/24 14:38 than 60 minutes Number of Risk Factors 2 03/01/24 14:38 PONV Score Moderate Risk 03/01/24 14:38 Height & Weight Height & Weight: Anesthesia: Height & Weight Height 6 ft 03/25/24 06:04 Weight: 99 kg 03/25/24 06:04 Body Mass Index (BMI) 29.6 03/25/24 06:04 Respiratory Assessment Respiratory Assessment - delinquency prevention social worker: Respiratory Tract Infection Hx - delinquency prevention social worker Hx Respiratory Tract Infection No 03/01/24 14:38 STOP Sleep Apnea STOP Sleep Apnea - delinquency prevention social worker: STOP Sleep Apnea - delinquency prevention social worker Hx Hypertension Yes: CONTROLLED WITH MEDS 03/01/24 14:38 Hx Sleep Apnea No 03/01/24 14:38 CPAP BIPAP Do you snore loudly (louder No 03/01/24 14:38 than talking or can be heard Do you often feel tired/ No 03/01/24 14:38 fatigued/ sleepy during daytime? Has anyone observed you stop No 03/01/24 14:38 breathing during sleep? STOP Results Negative 03/01/24 14:38 QUESTION #5 FULL TEXT : Do you snore loudly (louder than talking or can be heard through closed doors)? Tobacco Use History Tobacco Use History - delinquency prevention social worker: Tobacco Use History - delinquency prevention social worker Tobacco Use Smoking Status Never smoker 03/01/24 14:38 Hx Tobacco Use No 03/01/24 14:38 Years Smoking Packs Smoked per Day Smoking Cessation Date was within the last 15 years Hx Smoking Cessation Date Hx Smoking Cessation Counseling Hematologic Medial History Hematologic Hx - delinquency prevention social worker: Hematologic Medical Hx - live games dealer Hx of Blood Transfusion No 03/01/24 14:38 Hx of Transfusion in last 3 No 03/01/24 14:38 Months Date of Last Transfusion (if within last 3 months) Ever experience any problems No 03/01/24 14:38 with transfusion(s)? Specify any problems Hx of Preganancy in last 3 N/A 03/01/24 14:38 Months Nurse Filling Out Transfusion DSCHRIBER 03/01/24 14:38 & Questions: Date: 03/01/24 03/01/24 14:38 Time: 14:39 03/01/24 14:38 Patient unable to answer at this time (ie. confused, unrespo /Reproduction History /Reproductive History - delinquency prevention social worker: /Reproductive Hx- delinquency prevention social worker Hx Now No 03/01/24 14:38 Gestational Age (in weeks): EDC: Hx Hx Para Hx Section SAB No 03/01/24 14:38 Active Medications Active Medications: Current Medications Generic Name Dose Route Start Last Admin Trade Name Freq PRN Reason Stop Dose Admin Acetaminophen 1,000 mg 03/25/24 07:30 03/25/24 06:37 Acetaminophen 500 Mg Tablet PO 03/25/24 07:31 1,000 mg X1 ONE Administration Celecoxib 400 mg 03/25/24 07:30 03/25/24 06:37 Celecoxib 200 Mg Capsule PO 03/25/24 07:31 400 mg X1 ONE Administration Gabapentin 600 mg 03/25/24 07:30 03/25/24 06:37 Gabapentin 600 Mg Tablet PO 03/25/24 07:31 600 mg X1 ONE Administration Lactated Ringer's 1,000 mls @ 999 mls/hr 03/25/24 07:30 03/25/24 06:37 IV 03/25/24 08:30 999 mls/hr .Q1H1M LAM Administration Tranexamic Acid 1,000 mg/ 110 mls @ 660 mls/hr 03/25/24 07:30 Sodium Chloride IV 03/25/24 07:39 X1 ONE Lactated Ringer's 1,000 mls @ 999 mls/hr 03/25/24 07:30 IV 03/25/24 08:30 .Q1H1M LAM Lactated Ringer's 1,000 mls @ 125 mls/hr 03/25/24 07:30 IV 03/25/24 15:29 .Q8H LAM Lactated Ringer's 1,000 mls @ 75 mls/hr 03/25/24 07:30 IV 03/25/24 20:49 .[id number] LAM Cefazolin Sodium 2 gm/ N/A 20 mls @ 400 mls/hr 03/25/24 07:30 IV 03/25/24 07:32 PREOP ONE Magnesium Sulfate 1 gm/ 102 mls @ 408 mls/hr 03/25/24 07:30 03/25/24 06:32 Dextrose IV 03/25/24 07:44 408 mls/hr X1 ONE Administration Vancomycin HCl 1,500 mg/ 530 mls @ 250 mls/hr 03/25/24 07:30 03/25/24 06:38 Sodium Chloride IV 03/25/24 09:37 250 mls/hr X1 ONE Administration Insulin Human Lispro 1 - 6 unit 03/25/24 07:30 Insulin Lispro 100 Unit/Ml Insuln.Pen SC 03/25/24 13:00 Q4H PRN PRN BG>/= 180, SEE PROTOCOL Protocol PFSH Medical History Alcohol use Arthritis DDD (degenerative disc disease) Heartburn Non-smoker History of echocardiogram History of stress test Cardiology follow-up encounter Hyperlipidemia Essential hypertension Right bundle branch block (RBBB) with left anterior fascicular block History of COVID-19 (04/2020) Home Medications ?Medication ?Instructions ?Recorded ?Last Taken ?Type naproxen sodium 220 mg capsule 220 mg PO DAILY 07/21/21 Unknown History (Aleve) amlodipine 10 mg tablet 10 mg PO DAILY #90 tabs 11/22/23 Unknown Rx losartan 100 mg tablet 100 mg PO DAILY #90 tabs 11/22/23 Unknown Rx multivitamin 1 tab PO DAILY 07/31/24 Unknown History Allergy/AdvReac Type Severity Reaction Status Date / Time No Known Allergies Allergy Verified 03/25/24 06:01 Family History Father Heart disease, Onset Age: 91 TAVR Surgical History Hx of tonsillectomy History of total right knee replacement (TKR) History of fusion of cervical spine History of knee replacement procedure of left knee Social History Smoking Status: Never smoker alcohol intake: current alcohol intake frequency: holidays/special occasions only details: pack beer a week substance use type: does not use what type of physical activity do you participate in: none frequency: 1-2 times per week Review of Systems (Anesthesia) ROS Narrative System reviewed and no additional complaints, except as documented.
[2024-03-25] MEDS: Cefazolin 2 GM in Syringe IV (07:30)
--- NOTE | 2024-03-25 07:30 | SHO_PTH ---
PATIENT: CADENCE LUI LOC: [facility] U#:[id number] AGE/SX: 64/M ROOM: RE03/25/[address]: Dr. Jose Love DO : 1960 BED: DIS: 03/25/2024 SPEC #: [id number] RECD: 03/25/24 10:55 STATUS: RIKA REQ #: [id number] YAMILE: 03/25/24 07:[address]: Jose Love DEPT: SURGICAL PATHOLOGY RECD BY: Brandon German ENTERED: 03/25/24 11:28 SP TYPE: HUMERUS OTHR DR: Dr. Ravi Solorzano MD Tissues: Humerus, NOS Procedures: Decalcification bone/plaque Surgery Specimen Level IV HEADER OPERATION: Reverse left total shoulder arthroplasty PRE-OP DIAGNOSIS: Severe glenohumeral joint osteoarthritis TISSUE SUBMITTED: Left humeral head MICROSCOPIC DIAGNOSIS Bone and tissue of left shoulder, total shoulder resection: Degenerative joint disease. Synovium with polarizable crystals consistent with pseudogout. AM: 03/28/2024 MICROSCOPIC DESCRIPTION Slides are reviewed. GROSS DESCRIPTION Received is one container labeled with the patient's name and designated Left humeral head. The specimen consists of a discoid fragment bone resembling humeral head measuring 5.6 cm in diameter and 2.2cm in thickness.. The articular surfaces display extensive bone erosion. Also present in the container are multiple irregular fragments of bone consistent with loose body measuring in aggregate 6.0 x 4.0 x 2.0cm. Fragments of light tab-yellow soft tissue is adherent to several fragments of bone. Feeder/Folder sections are submitted in two cassettes as follows: 1 - soft tissue, 2 - bone after decalcification. / AM: 03/25/2024 TC:5 CPT: 89073, [id number]
[2024-03-25 07:48] LABS: Bedside Glucose 132 mg/dL (74-106)
[2024-03-25] MEDS: TXA 1000mg in NS100 100ml (IVPB at Incision) 660 MG IV (08:00)
--- NOTE | 2024-03-25 09:38 | PCM.OPRPT ---
Operative Report (Standard) Operative Information Surgery/Procedure Performed: Left reverse total shoulder arthroplasty Surgeon: Jose Love Date of Procedure: 03/25/24 Procedure Start Time: 08:00 Procedure Stop Time: 09:15 Pre-Operative Diagnosis: Left shoulder osteoarthritis Post-Operative Diagnosis: Left shoulder osteoarthritis Select all DRAINS/GRAFTS/IMPLANTS that apply: None (See dictated op report below) Type of Anesthesia: General/Regional Estimated Blood Loss: 50 cc Fluids Replaced: Per anesthesia record Specimen collected: Yes Description of specimen(s) removed: Left humeral head Description of surgery: Surgeon: Jose Love DO Server Security Administrator: Veronique Oneal PA-C Anesthesia: General endotracheal Manager Mechanical Maintenance: Jose Odom CRNA Complications: None apparent Drains: None Surgical implants: Tornier Aequalis PerFORM+ reversed baseplate 29 mm diameter +6 mm lateralization, standard glenosphere cobalt chrome 42 mm diameter, Tornier perform inlay stem size #3, +0 mm retentive size number 3 42 mm diameter polyethylene insert, short central post and peripheral screws x4. Surgical indications: This is a 64-year-old male with persistent left shoulder pain. He had severe left shoulder osteoarthritis. He had significant weakness in his rotator cuff concerning for insufficiency. I recommended a reverse shoulder arthroplasty. We obtained a preoperative CT scan for planning. The risks, benefits, alternatives the procedure was reviewed with the patient and he agreed to proceed. Risks included but were not limited to bleeding, infection, instability, loss of life or limb, risk of anesthesia, neurovascular injury, persistent pain, stiffness, prolonged immobilization, need for additional surgery, loosening of orthopedic hardware. He expressed understanding and wished to proceed with surgery. Surgical details: Patient arrived to [facility] morning of the procedure and was greeted by the same day surgery staff. Prior to his procedure, I greeted the patient in the preoperative holding area I identified the patient by name, record number, and date of . Informed consent was confirmed. The operative extremity was marked. All questions were answered to patient satisfaction. An interscalene block was administered prior to procedure by anesthesia staff for postoperative and intraoperative analgesia. At time of his procedure, patient was brought to the operative suite and positioned supine on a standard table with a beachchair attachment. General anesthesia was induced after all bony prominences were well-padded. Endotracheal tube was placed. After adequate anesthesia and securing the tube, we prepared the patient to be positioned in the beachchair position. A well-padded head mechanic was applied. The nonoperative extremity was placed in a well arm bonilla. He was then brought into the beachchair position after we confirmed an appropriate blood pressure. We then spun the bed 45 degrees. The operative extremity was then prepared. In the butterfly wing of the bed was removed and a well-padded torso strap was applied to secure the patient to the bed. The operative extremity was now free. We then prepped and draped the right upper extremity in normal, sterile orthopedic fashion. We then performed a timeout with all parties in attendance in agreement with the side, site, and operation be performed. 1 g vancomycin and 2 g Ancef was administered prior to incision by anesthesia staff, as well as 1 g TXA IV. No concerns were voiced and we elected to proceed. I first marked a standard deltopectoral incision just lateral to the coracoid process in line with the long axis of the humerus. Skin was sharply incised with 10 blade scalpel. I then dissected bluntly through the subcutaneous layers and found the fat stripe between the deltoid and pectoralis major. The cephalic vein was then identified and protected. It was retracted laterally with the deltoid. I then bluntly dissected underneath the deltoid with a Martinez elevator. Karen retractor was placed. The upper 1 cm of the pectoralis major was released. I then identified the long head of the biceps tendon in the intertubercular groove. This was tenodesed in situ with #2 FiberWire. I then amputated the biceps proximal to the tenodesis site and followed the tendon to the supraglenoid tubercle where it was amputated. This identified the lesser and greater tuberosities. The supraspinatus was completely torn and retracted with an exposed greater tuberosity. I then performed a subscapularis peel while rotating the humerus externally. I tagged the subscapularis for possible repair later with a tagging suture. Humeral head was then dislocated anteriorly. Appropriate access to the humeral head was confirmed. I then subluxed the humeral head posteriorly with a Fukuda retractor placed around the posterior lip of the glenoid. Inferior capsule was tension. I was able to palpate the axillary nerve. Inferior capsule was then released to the 4 o'clock position of the glenoid face. 3 sided subscapularis release was performed with Bovie cautery. I then remove the Fukuda retractor and redislocated the shoulder anteriorly. I then made a anatomic neck cut of the cartilaginous surface of the humeral head. Sizing plate for a size # 3 stem was utilized to determine appropriate reaming size. A central pin was placed engaging the lateral cortex of the humerus. A size # 3 reamer was used to ream the humeral metaphysis and prepare for the inlay stem. A canal finding reamer was utilized prior to sequential broaching to a size # 3 short stem with excellent rotational and axial purchase in the humerus. I remove the broach handle left the size # [address] I then subluxed the humerus posterior to the glenoid. I then placed retractors around the posterior and anterior glenoid to expose the glenoid. Glenoid labrum was removed with Bovie cautery protecting the axillary nerve. We then used the custom guide from [employer] to position our centering pin, exiting approximately 25 mm from the joint surface along the anterior scapula. Guide was removed and pin was analyzed and compared to preoperative planning. It appeared to be in appropriate position. The Nautilus shaped reamer was then placed over top of the centering pin. I reamed a flat surface of the glenoid. We then removed the reamer and used the cannulated drill for the short central post. Post and baseplate was assembled on the back table. We then inserted the baseplate and central post the assembled baseplate to an appropriate depth with good press-fit purchase. A Rochelle was used to confirm depth. Peripheral screws then were placed in the peripheral holes with good purchase. The baseplate had excellent purchase and the entire scapula would rotate with rotation of the baseplate. We then impacted the 42 mm glenosphere with a standard eccentricity and tightened the locking screw mechanism. We then removed retractors and turned our attention back to the humerus. I placed a standard +0 millimeters retentive polyethylene insert. I then reduced the shoulder. There was excellent range of motion and stability in all planes of motion. We selected this as our final size. We removed trials from the humerus after final dislocation. I copiously irrigated the canal. Broach was placed on hand and then impacted to an appropriate depth. Final + 0 mm retentive polyethylene insert was placed. Final reduction was then performed. The subscapularis was then identified with a tagging suture. Repair would have been likely under undue tension and likely failed. I elected to not perform a subscapularis repair. We then copiously irrigated the wound with sterile Betadine and normal saline solution. We reapproximated the interval with 0 Vicryl suture. Subcutaneous layers were reapproximated with 2 -0 Vicryl suture. Skin was finally running V-Loc 3-0 Monocryl suture and Dermabond. A sterile silver Mepilex dressing was applied. Patient was then placed in an ultra sling. Patient tolerated procedure well without complication. He was positioned back in the supine position extubated in the operative suite. He was transferred to the rney and subsequently to PACU in stable condition. Need for skilled speech pathology assistant: Veronique Oneal PA-C was critical to the outcome of the case. During the course of the procedure the physician speech pathology assistant played a vital role. Her intimate knowledge of my steps in the procedure aided in safe and expedient completion of the procedure. The PA played a vital role in positioning particularly in obtaining the appropriate positioning. The PA was also vital in the retraction of soft tissues during the exposure and protecting vital structures. The PA was also vital and protecting soft tissues during times of bony cuts. She also played a vital role in closure with my direct supervision. The PA was also important during reduction and dislocation of the joint and trials intraoperatively. Intraoperative medications: 2 g Ancef IV, 1 g vancomycin, 1 g TXA IV x2 Post Operative Plan: Weightbearing: Nonweightbearing left upper extremity, okay for pendulums. Range of motion of wrist elbow and hand as tolerated. DVT Prophylaxis: Aspirin enteric-coated 81 mg twice daily starting tomorrow Jackson: None Dressing: Maintain silver dressing x5 days. Okay to shower dressing on started on day 4 X-Rays: 2 weeks postop in the office Pain Medication: Oxycodone Rx upon discharge Follow-up: 2 weeks post-operatively with me in the office. Outpatient physical therapy to start in 2 weeks. Surgical Findings: Severe left glenohumeral joint osteoarthritis Bladder Tier gang drill operator: Yes Server Security Administrator: Veronique Oneal Tasks completed by assistant professor of drama: Opening & closing, Implanting device, Hemostasis: Electrocautery and Retracting Additional speech pathology assistant?: No Complications Complications: No Admit VTE Documentation VTE Present on Admission: No VTE Mechan Device Prophylaxis: SCD's and Knee High VANESSA Hose VTE Pharm Prophylaxis ordered?: Yes
--- NOTE | 2024-03-25 09:40 | RAD_ITS ---
STUDY: X-RAY - LEFT SHOULDER REASON FOR EXAM: Male, 64 years old. Post op -- AP and Lateral X-Ray of operative shoulder in PACU TECHNIQUE: 2 view(s) of the shoulder. COMPARISON: None. FINDINGS: The patient is status post left shoulder replacement. There is good alignment. RAD/Shoulder min 2 Views IMPRESSION: Status post left reverse shoulder replacement. There is good alignment. Electronically Signed: Blair Remy MD at 15:29 EST ,
--- NOTE | 2024-03-25 09:55 | PCM.POST.ANE ---
Anesthesia: Postop Eval I Current Vital Signs Temperature: 97 F Pulse Rate: 60 Blood Pressure: 107/74 Respiratory Rate: 16 Pulse Ox: 92 Oxygen Delivery Method: Nasal Cannula Assessment Airway patent: Yes Spontaneous unlabored respirations: Yes Mental status: Awake and Calm nausea: No Vomiting: No Anesthesia Complication: No Fluid Hydration Crystalloid volume administer (ml): 800 Total IV fluid infused: 800 Progress Note Anesthesia document: Postop Eval 1 completed: Yes
--- NOTE | 2024-03-25 09:56 | PCM.POSTANE2 ---
Anesthesia Postop Eval I Sum Postop Eval Completion status Anesthesia document: Postop Eval 1 completed: Yes Anesthesia Postop Eval I Summary Anesthesia Postop Eval I Summary: Anesthesia Postop Eval I: Assessment Summary Airway patent Yes 03/25/24 09:56 Spontaneous unlabored Yes 03/25/24 09:56 respirations Mental status Awake,Calm 03/25/24 09:56 nausea No 03/25/24 09:56 Vomiting No 03/25/24 09:56 Anesthesia Postop Eval I: Fluid Summary Crystalloid volume administer 800 03/25/24 09:56 (ml) Colloids volume administered ( ml) Blood Product volume administered (ml) Total IV fluid infused 800 03/25/24 09:56 Anesthesia Postop Eval I: Summary Notes Anesthesia Complication No 03/25/24 09:56 Anesthesia Complication Comment: Post-operative progress note Anesthesia: Postop Eval II Evaluation Mental status: Awake Pain Level: 2 nausea: No Vomiting: No
--- NOTE | 2024-03-25 10:39 | PCM.POST.ANE ---
Anesthesia: Postop Eval I Current Vital Signs Temperature: 97 F Pulse Rate: 97 Blood Pressure: 117/83 Respiratory Rate: 16 Pulse Ox: 92 Oxygen Delivery Method: Room Air Assessment Airway patent: Yes Spontaneous unlabored respirations: Yes Mental status: Awake and Calm nausea: No Vomiting: No Anesthesia Complication: No Fluid Hydration Crystalloid volume administer (ml): 900 Total IV fluid infused: 900 Progress Note Anesthesia document: Postop Eval 1 completed: Yes
[2024-03-25] MEDS: Lactated Ringers 1,000 ML 125 ML IV (11:07)
[2024-03-25] MEDS: oxyCODONE 5 MG Tablet PO (11:47)
[2024-03-25] MEDS: Ketorolac 15 MG/ML Vial IV (11:48)
[2024-03-25] MEDS: Cefazolin 1 GM/50 ML BAG IV (11:50)
== END 2024-03-25 13:42 | disposition home or self-care (01) ==
LOC: SDC 05:27 → AC 05:28
PROVIDERS: PCP Internal Medicine; Referring Provider Student in an Organized Health Care Education/Training Program; Visit Provider Student in an Organized Health Care Education/Training Program
PROC: (CPT 23472; principal; 2024-03-25 07:00)
DX: M19.012 Primary osteoarthritis, left shoulder (principal); I10 Essential (primary) hypertension; M17.11 Unilateral primary osteoarthritis, right knee; Z96.653 Presence of artificial knee joint, bilateral; Z79.899 Other long term (current) drug therapy
CPT/HCPCS: 23472; 01638; 64415; 73030; 82962; 87081; 88305; 88311; 97166; C1776; J2405; J3475

== ENCOUNTER → 2025-02-14 | Outpatient (CLI) | payer BC, SELFPAY ==
[2025-02-14 10:17] LABS: Hematocrit 44.5 % (40-54); Hemoglobin 15.7 g/dL (13.0-16.5); Immature Granulocytes Count 0.020 X10^3/uL (0.0-0.0); Mean Corp Hgb Conc 35.3 g/dL (32-36); Mean Corpuscular Volume 85.4 fL (80-94); Mean Platelet Vol. 10.1 fl (6.2-12.0); NRBC Flagged by Analyzer 0 % (0-5); Platelet Count 219 K/mm3 (150-450); RBC Distribution Width CV 12.3 % (11.6-14.6); RBC Distribution Width SD 38.0 fl (35.1-43.9); Red Blood Count 5.21 M/mm3 (4.6-6.2); White Blood Count 5.3 K/mm3 (4.4-11.0)
[2025-02-14 10:59] LABS: AST(SGOT) 39 U/L (<=37); Alanine Aminotransfer ALT/SGPT 72 U/L (<=46); Albumin, Serum 4.5 g/dL (3.4-4.8); Alkaline Phosphatase 64 U/L (40-129); Anion Gap 11 (5-15); BUN 20 mg/dL (4-19); BUN/Creat Ratio 21.9 RATIO (10-20); Calcium,Total 9.3 mg/dL (7.6-11.0); Carbon Dioxide 25.1 mmol/L (21.0-32.0); Chloride 104 mmol/L (98-108); Cholesterol 213 mg/dL (<=200); Globulin 2.4 g/dL (2.2-4.2); Glucose 100 mg/dL (70-99); Low Density Lipoprotein Calc. 127 mg/dL; PSA,Total- Diagnostic 2.39 ng/mL (0.00-4.00); Potassium 3.9 mmol/L (3.3-5.1); Triglycerides 147 mg/dL; Very Low Density Lipoprotein 29 mg/dL (5-40); cholesterol:hdl ratio screen 3.53
== END | disposition home or self-care (01) ==
LOC: LAB 09:24
PROVIDERS: PCP Internal Medicine; Referring Provider Internal Medicine; Visit Provider Internal Medicine
DX: Z00.00 Encounter for general adult medical examination without abnormal findings (principal); Z12.5 Encounter for screening for malignant neoplasm of prostate
CPT/HCPCS: 36415; 80053; 80061; 84153; 85025